=== PATIENT | female | born 1995 | race Caucasian/White ===

== ENCOUNTER 2018-12-21 23:00 | Emergency (ER) | payer MEDICAID ==
[~2018-12-21] VITALS: Ht 152.4 cm; Wt 104.3 kg
[2018-12-21 23:10] VITALS: BP 129/71
== END 2018-12-22 00:04 | disposition left against medical advice (07) ==
LOC: ER 23:00
DX: R51 Headache (principal); Z53.21 Procedure and treatment not carried out due to patient leaving prior to being seen by health care provider